=== PATIENT | female | born 1990 | race Hispanic/Latino ===

== ENCOUNTER 2020-05-12 12:09 | Emergency (ER) | payer OTHER ==
[2020-05-13 14:49] LABS: SARS-CoV-2 MS2 Positive; SARS-CoV-2 N Gene Positive; SARS-CoV-2 S Gene Positive; SARS-CoV-2 orf1ab Positive
== END 2020-05-12 13:15 | disposition home or self-care (01) ==
LOC: ERS 12:09
DX: U07.1 COVID-19 (principal); R05 Cough; R51 Headache; R50.9 Fever, unspecified; F17.210 Nicotine dependence, cigarettes, uncomplicated
CPT/HCPCS: 87635; 99284; U0003